=== PATIENT | male | born 1995 | race Caucasian/White ===

== ENCOUNTER 2017-05-12 11:26 | Inpatient (IN) | payer OTHER, BC ==
[~2017-05-12] VITALS: Ht 170.2 cm; Wt 70.4 kg
[~2017-05-12 11:26] MED LIST: DISKETS40 MG PO; FLUOXETINE HCL20 MG PO; HYDROXYZINE PAM50 MG PO
[2017-05-12 11:52] LABS: EOSINOPHIL (%) 1.7 % (0-5); EOSINOPHIL COUNT 0.2 K/uL (0-0.3); HEMATOCRIT 40.4 % (38.0-50.0); IMMATURE GRANULOCYTE (%) 1.6 % (0.0-0.7); IMMATURE GRANULOCYTE COUNT 0.2 K/uL; INSTRUMENT ABS NEUTROPHIL CT 9.5 K/uL; LYMPHOCYTE COUNT 2.3 K/uL (1.0-2.8); MCH 29.5 PG (29.0-34.0); MCHC 33.9 G/DL (30.0-36.0); MCV 86.9 FL (86-99); MEAN PLAT.VOLUME 10.7 uM^3 (9.0-12.4); MONOCYTE (%) 3.6 % (3-12); MONOCYTE COUNT 0.5 K/uL (0-0.8); NEUTROPHIL (%) 74.5 % (45-76); NEUTROPHIL COUNT 9.5 K/uL (1.8-6.4); PLATELET COUNT 192 K/uL (156-360); RBC DIS.WIDTH-CV 13.5 % (11.8-14.6); RBC DIS.WIDTH-SD 43.5 % (39-53); RED BLOOD COUNT 4.65 M/uL (4.00-5.50); WHITE BLOOD COUNT 12.7 K/uL (4.1-10.2)
[2017-05-12 12:01] LABS: AMYLASE 64 IU/L (1-118); CHLORIDE 103 mEq/L (99-109); POTASSIUM 3.8 mEq/L (3.7-5.4); SODIUM 141 mEq/L (136-147)
[2017-05-12 12:03] LABS: GLUCOSE 88 mg/dL (70-99)
[2017-05-12 12:05] LABS: ANION GAP 13 MEQ/L (2-14)
[2017-05-12 12:06] LABS: SERUM ETHYL ALCOHOL < 10 mg/dL
[2017-05-12 12:07] LABS: GFR ESTIMATE (CALCULATED) > 59 mL/min/
[2017-05-12 12:08] LABS: UREA NITROGEN (BUN) 8 mg/dL (9-23)
[2017-05-12 12:10] LABS: LIPASE 97 U/L (1.0-51.0)
[2017-05-12 12:34] LABS: PROTHROMBIN TIME 11.9 SEC (10.2-12.9)
[2017-05-12 12:40] LABS: TOTAL BILIRUBIN 0.5 mg/dL (0.0-1.0)
[2017-05-12 12:41] LABS: ALKALINE PHOSPHATASE 47 IU/L (3-129)
[2017-05-12 12:43] LABS: ADD MIUA? YES; BILIRUBIN NEGATIVE; BLOOD NEGATIVE; COLOR YELLOW ((YELLOW)); GLUCOSE (STRIP) NEGATIVE; KETONES NEGATIVE; LEUKOCYTES NEGATIVE; NITRITE NEGATIVE; PROTEIN (STRIP) NEGATIVE; SPECIFIC GRAVITY 1.032 (1.000-1.030); UROBILINOGEN 0.2 MG/DL (0.2-1.0)
[2017-05-12 12:43] LABS: DIRECT BILIRUBIN 0.2 mg/dL (0.0-0.3)
[2017-05-12 12:55] LABS: BACTERIA RARE /HPF; COCAINE PRESUMPTIVE POSITIVE (150 ng/mL); EPITHELIAL CELLS NONE SEEN /HPF; METHAMPHETAMINE NEGATIVE (500 ng/mL); MUCUS TRACE /LPF; PHENCYCLIDINE NEGATIVE (25 ng/mL); RED BLOOD CELLS 0-5 /HPF (0-5); THC CANNABINOIDS PRESUMPTIVE POSITIVE (50 ng/mL); UCUL ADDED? YES
[2017-05-12 12:56] LABS: AMPHETAMINE NEGATIVE (500 ng/mL); BARBITURATES NEGATIVE (200 ng/mL); BENZODIAZEPINES PRESUMPTIVE POSITIVE (150 ng/mL); INTERNAL CONTROLS VALID? YES; METHADONE NEGATIVE (200 ng/mL); OPIATES (MORPHINE) PRESUMPTIVE POSITIVE (100 ng/mL); OXYCODONE NEGATIVE (100 ng/mL); PROPOXYPHENE NEGATIVE (300 ng/mL); TRICYCLIC ANTIDEPRESSANTS NEGATIVE (300 ng/mL)
[2017-05-12 12:57] LABS: ADD MEDTOX COMMENT Y
[2017-05-12 13:30] LABS: BENZODIAZEPINES, URINE SCREEN POSITIVE (200 ng/mL)
[2017-05-12 16:28] LABS: EOSINOPHIL (%) 0.1 % (0-5); HEMATOCRIT 34.5 % (38.0-50.0); IMMATURE GRANULOCYTE (%) 1.3 % (0.0-0.7); IMMATURE GRANULOCYTE COUNT 0.2 K/uL; INSTRUMENT ABS NEUTROPHIL CT 12.9 K/uL; LYMPHOCYTE COUNT 0.9 K/uL (1.0-2.8); MCH 29.6 PG (29.0-34.0); MCHC 34.2 G/DL (30.0-36.0); MCV 86.7 FL (86-99); MEAN PLAT.VOLUME 10.3 uM^3 (9.0-12.4); MONOCYTE (%) 6.8 % (3-12); NEUTROPHIL (%) 85.9 % (45-76); NEUTROPHIL COUNT 12.9 K/uL (1.8-6.4); PLATELET COUNT 157 K/uL (156-360); RBC DIS.WIDTH-CV 14.3 % (11.8-14.6); RBC DIS.WIDTH-SD 45.6 % (39-53); RED BLOOD COUNT 3.98 M/uL (4.00-5.50)
[2017-05-12 16:44] LABS: ANION GAP 3 MEQ/L (2-14); CHLORIDE 108 MEQ/L (99-109); MAGNESIUM 1.4 mg/dl (1.3-2.7); SAMPLE HEMOLYSIS CHECK 0; SAMPLE ICTERIC CHECK 0; SAMPLE LIPEMIA CHECK 0; SODIUM 135 MEQ/L (136-147)
[2017-05-12 16:49] LABS: GFR ESTIMATE (CALCULATED) > 59 mL/min/; GLUCOSE 101 mg/dL (70-99); INTER. NORMALIZED RATIO 1.2; PROTHROMBIN TIME 14.3 SEC (10.2-12.9); UREA NITROGEN (BUN) 7 mg/dL (9-23)
[2017-05-13] VITALS (18 sets, daily range): BP systolic 98–145; BP diastolic 55–80
[2017-05-13 05:26] LABS: HEMATOCRIT 36.6 % (38.0-50.0); MCH 29.4 PG (29.0-34.0); MCHC 34.7 G/DL (30.0-36.0); MCV 84.7 FL (86-99); MEAN PLAT.VOLUME 11.3 uM^3 (9.0-12.4); RBC DIS.WIDTH-CV 14.5 % (11.8-14.6); RBC DIS.WIDTH-SD 44.8 % (39-53); RED BLOOD COUNT 4.32 M/uL (4.00-5.50); WHITE BLOOD COUNT 24.5 K/uL (4.1-10.2)
[2017-05-13 05:34] LABS: PLATELET COUNT 216 K/uL (156-360)
[2017-05-13 05:49] LABS: ALKALINE PHOSPHATASE 32 IU/L (3-129); ANION GAP 8 MEQ/L (2-14); CHLORIDE 102 MEQ/L (99-109); GFR ESTIMATE (CALCULATED) > 59 mL/min/; GLUCOSE 93 mg/dL (70-99); POTASSIUM 4.1 MEQ/L (3.7-5.4); SAMPLE HEMOLYSIS CHECK 0; SAMPLE ICTERIC CHECK 0; SAMPLE LIPEMIA CHECK 0; SODIUM 134 MEQ/L (136-147); TOTAL BILIRUBIN 0.8 MG/DL (0.0-1.0); UREA NITROGEN (BUN) 6 mg/dL (9-23)
[2017-05-13 06:54] LABS: BICARBONATE 27.9 mEq/L (22-26); CARBOXY HGB 2.8 % (0-5); COMMENTS - BLOOD GASES A+C+; DEVICE NRB; FI02 100 %; METHEMOGLOBIN 2.1 % (0-1.5); O2 FLOW 15 L/MIN; PCO2 43 mm Hg (35-45); PO2 44 mm Hg (80-100); SITE RR; pH 7.42 (7.35-7.45)
[2017-05-13 07:29] LABS: BASOPHIL COUNT 0.1 K/uL (0-0.1); EOSINOPHIL (%) 0 % (0-5); HEMATOCRIT 34.5 % (38.0-50.0); IMMATURE GRANULOCYTE (%) 0.7 % (0.0-0.7); IMMATURE GRANULOCYTE COUNT 0.2 K/uL; INSTRUMENT ABS NEUTROPHIL CT 24.8 K/uL; LYMPHOCYTE COUNT 1.5 K/uL (1.0-2.8); MCH 29.2 PG (29.0-34.0); MCHC 35.1 G/DL (30.0-36.0); MCV 83.1 FL (86-99); MEAN PLAT.VOLUME 10.9 uM^3 (9.0-12.4); MONOCYTE (%) 3.9 % (3-12); MONOCYTE COUNT 1.1 K/uL (0-0.8); NEUTROPHIL (%) 89.6 % (45-76); NEUTROPHIL COUNT 24.8 K/uL (1.8-6.4); PLATELET COUNT 211 K/uL (156-360); RBC DIS.WIDTH-CV 14.3 % (11.8-14.6); RBC DIS.WIDTH-SD 43.1 % (39-53); RED BLOOD COUNT 4.15 M/uL (4.00-5.50); WHITE BLOOD COUNT 27.7 K/uL (4.1-10.2)
[2017-05-13 07:35] LABS: INTER. NORMALIZED RATIO 1.4; PROTHROMBIN TIME 15.5 SEC (10.2-12.9)
[2017-05-13 07:38] LABS: PTT 30.3 SEC (25-37)
[2017-05-13 08:17] LABS: ALKALINE PHOSPHATASE 32 IU/L (3-129); ANION GAP 6 MEQ/L (2-14); CHLORIDE 101 MEQ/L (99-109); GFR ESTIMATE (CALCULATED) > 59 mL/min/; GLUCOSE 116 mg/dL (70-99); POTASSIUM 3.8 MEQ/L (3.7-5.4); SAMPLE HEMOLYSIS CHECK 0; SAMPLE ICTERIC CHECK 0; SAMPLE LIPEMIA CHECK 0; SODIUM 133 MEQ/L (136-147); TOTAL BILIRUBIN 0.7 MG/DL (0.0-1.0); UREA NITROGEN (BUN) 6 mg/dL (9-23)
[2017-05-13 08:59] LABS: METH RESISTANT S AUREUS PCR NEGATIVE (NEGATIVE); PROBE CHECK PASS; SPECIMEN PROCESSING CONTROL PASS
== END 2017-05-13 19:31 | disposition short-term general hospital (02) | DRG 957 ==
LOC: TRA 11:26 → ENRESERV 14:39 → CANRESERV 14:39 → TRA 14:45 → ENRESERV 14:54 → SDC 14:58 → 4WEST 15:46 → 2SOUTH 15:46 → ENRESERV 21:53 → 4EAST 05-13 00:13 → 4WEST 05-13 07:12
PROVIDERS: Emergency Medicine; Internal Medicine Critical Care Medicine; Surgery
DX: S36.032A Major laceration of spleen, initial encounter (principal); V47.5XXA Car driver injured in collision with fixed or stationary object in traffic accident, initial encounter; J96.01 Acute respiratory failure with hypoxia; K66.1 Hemoperitoneum; R50.82 Postprocedural fever; E88.09 Other disorders of plasma-protein metabolism, not elsewhere classified; R57.8 Other shock; F41.9 Anxiety disorder, unspecified; F11.20 Opioid dependence, uncomplicated; F17.200 Nicotine dependence, unspecified, uncomplicated; J98.11 Atelectasis; S32.421A Displaced fracture of posterior wall of right acetabulum, initial encounter for closed fracture; B19.20 Unspecified viral hepatitis C without hepatic coma
CPT/HCPCS: 36600; 70450; 71010; 71260; 72125; 74177; 80048; 80048 91; 80053; 80076; 81003; 82150; 82803; 83605; 83690; 83735; 84100; 84999; 85025; 85025 91; 85027; 85610; 85730; 86850; 86900; 86901; 86920; 87040; 87070; 87077; 87086; 87181; 87185; 87205; 87641; 88305; 93005; 94002; 94010; 94667; 94668; 99202; 99281; 99285; G0480; J0461; J1170; J2060; J2250; J2270; J2405; J2704; J2765; J3010; J7120; P9016